=== PATIENT | male | born 1950 ===

== ENCOUNTER 2017-09-28 10:24 | Emergency (ER) | payer OTHER, BC ==
[~2017-09-28] VITALS: Ht 177.8 cm; Wt 76.2 kg
[2017-09-28] MEDS ORDERED: CRESTOR10 MG (10:32)
[2017-09-28] MEDS ORDERED: TUSSI PRES-B L120 M1 PO (13:50)
[2017-09-28] MEDS ORDERED: OSEL75CA PO (13:50)
== END 2017-09-28 14:26 | disposition home or self-care (01) ==
LOC: ER 10:24
DX: J11.1 Influenza due to unidentified influenza virus with other respiratory manifestations (principal); B34.9 Viral infection, unspecified